=== PATIENT | male | born 1990 | race Hispanic/Latino ===

== ENCOUNTER 2019-07-30 16:30 | Emergency (ER) | payer OTHER ==
[2019-07-30] MEDS ORDERED: ONDANSETRON ODT 4 MG TAB ONE (16:41)
[2019-07-30] MEDS ORDERED: IBUPROFEN 600 MG TABLET ONE (18:01)
[2019-07-30] MEDS ORDERED: HYOSCYAMINE SULFATE 0.125 MG TAB.SUBL SL ONE (18:19)
== END 2019-07-30 19:12 | disposition home or self-care (01) ==
LOC: EDBD 16:30 → EDH 16:30
DX: A08.4 Viral intestinal infection, unspecified (principal)
CPT/HCPCS: 87804; 87880